=== PATIENT | male | born 1990 | race Caucasian/White ===

== ENCOUNTER 2017-05-02 23:12 | Emergency (ER) | payer MEDICAID ==
[~2017-05-02] VITALS: Ht 180.3 cm; Wt 72.8 kg
[2017-05-02 23:13] VITALS: BP 134/90
== END 2017-05-03 00:10 | disposition home or self-care (01) ==
LOC: ED 05-03 00:04
DX: L03.115 Cellulitis of right lower limb (principal); F17.200 Nicotine dependence, unspecified, uncomplicated; Z88.5 Allergy status to narcotic agent
CPT/HCPCS: 99283